=== PATIENT | male | born 2000 | race Caucasian/White ===

== ENCOUNTER 2018-04-29 20:16 | Emergency (ER) | payer OTHER ==
[2018-04-29] MEDS ORDERED: LIDOCAINE 2%-EPI 1:100000 20 ML MDV SUBQ STA (20:32)
--- NOTE | 2018-04-29 20:34 | ED Physician Documentation ---
PD HPI DYSPNEA - Stated complaint Stated Complaint: COUGH/CHEST PX - Chief complaint Chief Complaint: Resp - History obtained from History obtained from: Patient, Family (mom) - History of Present Illness Timing - onset: Last night (He has had what he describes as a cold for about a week with runny nose and cough. The runny nose went away but the cough has been getting worse. Suddenly last night he fell up severe right-sided chest pain while coughing and has trouble deep breathing now especially with inhalations. He is short of breath. He denies fevers at this juncture. He does not smoke.) Review of Systems Ten Systems: 10 systems reviewed and negative Constitutional: denies: Fever, Chills Nose: reports: Rhinorrhea / runny nose (gone) Cardiac: reports: Chest pain / pressure Respiratory: reports: Dyspnea, Cough PD PAST MEDICAL HISTORY - Past Medical History Past Medical History: No - Present Medications Home Medications: Ambulatory Orders Medication Instructions Recorded Confirmed No Known Home Medications 04/29/18 04/29/18 - Allergies Allergies/Adverse Reactions: Allergies Allergy/AdvReac Type Severity Reaction Status Date / Time No Known Drug Allergies Allergy Verified 04/29/18 20:59 - Living Situation Living Situation: reports: With family - Social History Does the pt smoke?: No Does the pt drink ETOH?: No - Family History Family history: reports: Non contributory PD ED PE NORMAL - Vitals Vital signs reviewed: Yes - General General: Alert and oriented X 3, Other (This is a tall thin young man in slight respiratory distress speaking in short but full sentences, but not full paragraphs.) - HEENT HEENT: PERRL, EOMI - Neck Neck: Supple, no meningeal sign, No bony TTP - Cardiac Cardiac: No murmur, Other (Quite tachycardic) - Respiratory Respiratory: Other (Slight tachypnea, decreased but not absent breath sounds on the right.) - Abdomen Abdomen: Soft, Non tender - Back Back: No CVA TTP, No spinal TTP - Derm Derm: Normal color, Warm and dry - Extremities Extremities: No edema, No calf tenderness / cord - Neuro Neuro: Alert and oriented X 3, Normal speech - Psych Psych: Normal mood, Normal affect Results - Vitals Vitals: Vital Signs - 24 hr 04/29/18 04/29/18 04/29/18 20:19 20:31 20:51 Temperature 37.2 C Heart Rate 57 L 156 H 132 H Respiratory 26 H 39 H 39 H Rate Blood Pressure 170/141 H 128/77 128/77 O2 Saturation 80 L 95 96 04/29/18 04/29/18 04/29/18 21:32 22:00 22:16 Temperature 38.1 C H 37.7 C H Heart Rate 113 H 126 H 130 H Respiratory 33 H 33 H 26 H Rate Blood Pressure 113/90 H 129/74 127/76 O2 Saturation 96 99 98 04/29/18 22:30 Temperature Heart Rate 128 H Respiratory 30 H Rate Blood Pressure 118/74 O2 Saturation 99 Oxygen O2 Source Nasal cannula Oxygen Flow Rate 2 - EKG (time done) 2027 Rate: Rate (enter#) (143) Rhythm: Sinus tachycardia, LAE [place]: Normal Intervals: Normal CA QRS: Normal Ischemia: Non specific changes Computer interpretation: Agree with computer - Labs Labs: Laboratory Tests 04/29/18 04/29/18 04/29/18 20:30 20:30 20:30 WBC 32.0 H RBC 5.06 Hgb 15.2 Hct 43.7 MCV 86.4 MCH 30.1 MCHC 34.9 RDW 13.1 Plt Count 211 MPV 8.4 Neut # (Auto) Not Reportable Lymph # (Auto) Not Reportable [place] # (Auto) Not Reportable Eos # (Auto) Not Reportable Baso # (Auto) Not Reportable Absolute Nucleated RBC Not Reportable Total Counted 100 Band Neuts % (Manual) 23 H Abnorm Lymph % (Manual) 0 Metamyelocytes % 2 H Nucleated RBC % Not Reportable Neutrophils # (Manual) 27.5 H Lymphocytes # (Manual) 1.6 Monocytes # (Manual) 2.2 H Eosinophils # (Manual) 0.0 Basophils # (Manual) 0.0 Differential Comment MANUAL DIFFERENTIAL Manual Slide Review Indicated Platelet Estimate NORMAL (130-450,000) Platelet Morphology NORMAL APPEARANCE RBC Morph Micro Appear NORMAL APPEARANCE PT 20.7 H INR 1.8 H Sodium 132 L Potassium 3.7 Chloride 94 L Carbon Dioxide 25 Anion Gap 13.0 BUN 12 Creatinine 0.8 Estimated GFR (MDRD) 125 Glucose 130 H Lactic Acid Calcium 8.7 Total Bilirubin 2.3 H AST 42 ALT 46 Alkaline Phosphatase 115 Total Protein 8.0 Albumin 3.5 Globulin 4.5 H Albumin/Globulin Ratio 0.8 L Lipase 54 H Influenza A (Rapid) Influenza B (Rapid) 04/29/18 04/29/18 20:40 21:10 WBC RBC Hgb Hct MCV MCH MCHC RDW Plt Count MPV Neut # (Auto) Lymph # (Auto) [place] # (Auto) Eos # (Auto) Baso # (Auto) Absolute Nucleated RBC Total Counted Band Neuts % (Manual) Abnorm Lymph % (Manual) Metamyelocytes % Nucleated RBC % Neutrophils # (Manual) Lymphocytes # (Manual) Monocytes # (Manual) Eosinophils # (Manual) Basophils # (Manual) Differential Comment Manual Slide Review Platelet Estimate Platelet Morphology RBC Morph Micro Appear PT INR Sodium Potassium Chloride Carbon Dioxide Anion Gap BUN Creatinine Estimated GFR (MDRD) Glucose Lactic Acid 2.6 H Calcium Total Bilirubin AST ALT Alkaline Phosphatase Total Protein Albumin Globulin Albumin/Globulin Ratio Lipase Influenza A (Rapid) Negative Influenza B (Rapid) Negative - Rads (name of study) 1v chest Radiology: EMP read contemporaneously (Mass versus loculated fluid in the right mid lung with interstitial right lung base infiltrate.) CT Chest Radiology: EMP read contemporaneously (Rounded appearance to masslike consolidation in the likely pneumonia. Follow-up chest CT with contrast is recommended in 3 months to assess for underlying lesion. Enlarged 1.5 cm right paratracheal lymph node may be reactive. 3 mm right renal calculus. Loculated pleural effusion.) PD MEDICAL DECISION MAKING - ED course ED course: This is a previously healthy tall thin 17-year-old who has had what sounds like a URI for about a week but much more ill since last night with a lot of right- sided chest pain and difficulty breathing. He does appear significantly ill with tachycardia, hypoxemia. He was attended to immediately. Differential diagnosis also included a right-sided pneumothorax but that is not present on x- ray. He does appear septic with a right mid lung and lower lung infiltrates, and the midlung infiltrate is concerning for mass or abscess. His labs do show a septic picture with a white count of 32,000 and left shift with bandemia, INR of 1.8, Lactate of 2.6 and a slightly elevated bilirubin. He was administered broad-spectrum antibiotics, Rocephin, azithromycin, and also vancomycin after reviewing the chest x-ray. Also 3 L of crystalloid, 2 L of lactated Ringer's and 1 L of saline. A flu swab was sent. Given the somewhat nebulous picture of the x-ray he will be sent over for CT of his chest to better evaluate the right mid lung. I believe he deserves transfer to a tertiary hospital for higher level of care for several reasons 1 is that the expected length of stay is probably greater than 96 hours, to he deserves consultation from potentially cardiothoracic surgeon for empyema and pulmonology for complicated pneumonia. [facility] was contacted and they are trying to facilitate a transfer for us. I discussed with him any risk factors for tuberculosis, he is never been incarcerated or used IV drugs or had significant foreign travel. [facility] arranged for transfer to [facility] under the care of Dr. Joaquin the resident assistant cna there. Airlift was mobilized given his hemodynamic instability, sepsis, and potentially long transport time by ground. - Critical Care Time(min): 50 Time Includes: Direct patient care, Review records, Reassess patient, Document care, Coordinate care, Medical consult, Family consult for tx dec Data interpretation: Labs Procedures included in critical care time: Peripheral IV Procedures excluded from critical care time: EKG Departure - Departure Disposition: 02 Transfer Acute Care Hosp Clinical Impression: Empyema Pneumonia Qualifiers: Pneumonia type: due to unspecified organism Laterality: right Lung location: lower lobe of lung Qualified Code(s): J18.1 - Lobar pneumonia, unspecified organism Sepsis Qualifiers: Sepsis type: sepsis due to unspecified organism Qualified Code(s): A41.9 - Sepsis, unspecified organism Condition: Critical
[2018-04-29] MEDS ORDERED: LACTATED RINGERS 2,000 ML IV STA (20:37)
[2018-04-29] MEDS ORDERED: AZITHROMYCIN INJ 500 MG in SODIUM CHLORIDE 0.9% 250 ML IV STA (20:37)
[2018-04-29] MEDS ORDERED: cefTRIAXone 2 GM in SODIUM CHLORIDE 0.9% MINIBAG 100 ML IV STA (20:37)
[2018-04-29] MEDS ORDERED: SODIUM CHLORIDE 0.9% 1,000 ML IV ONE (20:38)
[2018-04-29 20:41] LABS: BASOPHILS % (AUTO) 0.2 %; EOSINOPHILS % (AUTO) 0.2 %; HGB - HEMOGLOBIN 15.2 g/dL (14.0-18.0); LYMPHOCYTES % (AUTO) 1.5 %; MEAN CORPUSCULAR HEMOGLOBIN 30.1 pg (27.0-31.0); MEAN CORPUSCULAR HGB CONC 34.9 g/dL (32.0-36.0); MEAN CORPUSCULAR VOLUME 86.4 fL (80.0-94.0); MEAN PLATELET VOLUME 8.4 fL (7.4-11.4); MONOCYTES % (AUTO) 4.5 %; NEUTROPHILS % (AUTO) 93.6 %; PLT - PLATELET COUNT 211 10^3/uL (130-450); RED BLOOD COUNT 5.06 10^6/uL (4.70-6.10); RED CELL DISTRIBUTION WIDTH 13.1 % (12.0-15.0)
[2018-04-29 20:48] LABS: ABNORMAL LYMPHS % (MANUAL) 0 %
[2018-04-29 20:56] LABS: ALBUMIN 3.5 g/dL (3.2-5.5); ALBUMIN/GLOBULIN RATIO 0.8 (1.0-2.2); BILIRUBIN,TOTAL 2.3 mg/dL (0.2-1.0); CALCIUM 8.7 mg/dL (8.5-10.3); CREATININE 0.8 mg/dL (0.6-1.2)
[2018-04-29 20:57] LABS: INR 1.8 (0.8-1.2); PT - PROTHROMBIN TIME 20.7 secs (9.9-12.6)
--- NOTE | 2018-04-29 21:02 | XRAY Report ---
Reason: SOB Procedure Date: 04/29/2018 Accession Number: [id number] / [id number] Procedure: XR - Chest 1 View X-Ray CPT Code: 08870 FULL RESULT: EXAM: CHEST RADIOGRAPHY EXAM DATE: 04/29/2018 08:42 PM. CLINICAL HISTORY: Shortness of breath. COMPARISON: None. TECHNIQUE: 1 view. FINDINGS: Lungs/Pleura: Clear left lung. Ill-defined hazy opacity in the right midlung, loculated fluid versus mass, with interstitial infiltrate in the base. No pneumothorax. Mediastinum: Within exam limitations, the cardiomediastinal contour is normal. Other: No bony abnormality noted. IMPRESSION: Mass versus loculated fluid, right midlung, with interstitial right base infiltrate. RADIA
[2018-04-29 21:12] LABS: BAND NEUTROPHILS % (MANUAL) 23 %; LYMPHOCYTES # (MANUAL) 1.6 10^3/uL (1.5-3.5); LYMPHOCYTES % (MANUAL) 5 %; METAMYELOCYTES % (MANUAL) 2 %; MONOCYTES # (MANUAL) 2.2 10^3/uL (0.0-1.0); NEUTROPHILS # (MANUAL) 27.5 10^3/uL (1.5-6.6); NEUTROPHILS % (MANUAL) 63 %
[2018-04-29 21:13] LABS: DIFFERENTIAL COMMENT MANUAL DIFFERENTIAL; PLATELET ESTIMATE, MANUAL NORMAL (130-450,000) (NORMAL); PLATELET MORPHOLOGY NORMAL APPEARANCE (NORMAL); RBC MORPHOLOGY (MULTIPLE) NORMAL APPEARANCE (NORMAL)
[2018-04-29] MEDS ORDERED: VANCOMYCIN INJ 2 GM in SODIUM CHLORIDE 0.9% 500 ML IV STA (21:16)
[2018-04-29] MEDS ORDERED: MORPHINE 2 MG/ML CARPUJECT IVP STA ×2 (21:22→22:08)
[2018-04-29] MEDS ORDERED: ONDANSETRON 4 MG/2 ML VIAL IVP STA ×2 (21:22→23:25)
[2018-04-29] MEDS ORDERED: IOVERSOL 320 100 ML VIAL IVP ONE ×2 (21:27→21:55)
--- NOTE | 2018-04-29 22:24 | CT Report ---
Reason: IV only, complicated PNA, ?abscess Procedure Date: 04/29/2018 Accession Number: [id number] / [id number] Procedure: CT - CHEST W CPT Code: FULL RESULT: EXAM: CT CHEST EXAM DATE: 04/29/2018 09:39 PM. CLINICAL HISTORY: IV only, complicated PNA, ?abscess. COMPARISONS: None. TECHNIQUE: Routine helical CT imaging was performed through the chest. IV contrast: 80 cc Optiray 320. Reconstructions: Coronal and sagittal. In accordance with CT protocol optimization, one or more of the following dose reduction techniques were utilized for this exam: automated exposure control, adjustment of mA and/or KV based on patient size, or use of iterative reconstructive technique. FINDINGS: Lungs/Pleura: Masslike consolidation of the right lower lobe measuring 6.3 cm centrally. Heterogeneous hypoenhancement with no evidence for abscess. Patchy areas of opacification and groundglass in the aerated right lower lobe. Loculated moderate right pleural effusion is present. No endobronchial or endotracheal lesion. Mediastinum: Imaged portions of the thyroid are grossly unremarkable. Thoracic aorta and main pulmonary artery are normal caliber.No central PE. Heart size is within normal limits. No pericardial effusion. Lymph Nodes: 1.5 cm lower right paratracheal lymph node (05/29). Bones: No suspicious osseous lesions. Visualized chest wall is grossly unremarkable. Partially Imaged Upper Abdomen: 3 mm right renal calculus is present. IMPRESSION: Somewhat rounded appearance to masslike consolidation in the right lower lobe, most likely pneumonia. Follow-up chest CT with contrast is recommended in 3 months to assess for underlying lesion. Enlarged 1.5 cm right paratracheal lymph node may be reactive. 3 mm right renal calculus. RADIA
[2018-04-30 00:08] VITALS: BP 110/64
== END 2018-04-30 00:35 | disposition short-term general hospital (02) ==
LOC: ED 20:16
DX: A41.9 Sepsis, unspecified organism (principal); J86.9 Pyothorax without fistula; J18.1 Lobar pneumonia, unspecified organism
CPT/HCPCS: 36415; 71045; 71260; 80053; 83605; 83690; 85025; 85610; 87040; 87275; 87276; 93005; 96365; 96366; 96367; 96375; 96376; 99291; J3370; J7120; Q9967; 99285

== ENCOUNTER 2018-07-15 13:51 | Outpatient (CLI) | payer OTHER ==
--- NOTE | 2018-07-15 15:56 | XRAY Report ---
Reason: EMPYEMA OF PLEURA,PNEUMONIA Procedure Date: 07/15/2018 Accession Number: [id number] / [id number] Procedure: XR - Chest 2 View X-Ray CPT Code: 17161 FULL RESULT: EXAM: CHEST RADIOGRAPHY EXAM DATE: 07/15/2018 02:09 PM. CLINICAL HISTORY: Empyema of pleura, pneumonia. COMPARISON: XR CHEST 1 VIEW AP/PA 05/10/2018 7:50 AM. TECHNIQUE: 2 views. FINDINGS: Lungs/Pleura: There is some proximal airway thickening and lung volumes are high. No lobar consolidation is detected. There is blunting of the right costophrenic angle, minimally increased compared to prior and suggestive of a small pleural effusion. No pneumothorax is detected. Mediastinum: Heart and mediastinal contours are unremarkable. Other: The outline of the anterior right third rib is abnormal. IMPRESSION: High lung volumes and mild central airway thickening suggest the possibility of reactive airways disease. Abnormal appearance of the anterior right third rib, fracture versus confluence of shadows in the region of the horizontal fissure, area of prior loculated pleural effusion. Likely small right pleural effusion. RADIA The call report notification system was initiated by Dr. Robbie Varela at 03:43 PM on 07/15/2018. CRITICAL RESULT: The findings were discussed with Dr. Donahue on 07/15/2018 at 3:55 PM. . .
== END 2018-07-15 13:52 | disposition home or self-care (01) ==
LOC: DI 13:51
PROVIDERS: ATTEND Family Medicine
DX: J86.9 Pyothorax without fistula (principal); J18.9 Pneumonia, unspecified organism
CPT/HCPCS: 71046

== ENCOUNTER 2018-08-20 11:59 | Outpatient (CLI) | payer OTHER ==
--- NOTE | 2018-08-21 16:03 | XRAY Report ---
Reason: PNEUMONIA Procedure Date: 08/20/2018 Accession Number: [id number] / [id number] Procedure: XR - Chest 2 View X-Ray CPT Code: 49590 FULL RESULT: EXAM: CHEST RADIOGRAPHY EXAM DATE: 08/20/2018 12:17 PM. CLINICAL HISTORY: PNEUMONIA. COMPARISON: CHEST 2 VIEW 07/15/2018 2:04 PM THORAX 01 XCARE CHEST IV (ADULT) 05/06/2018 2:52 PM. TECHNIQUE: 2 views. FINDINGS: Lungs/Pleura: No evidence of lobar consolidation. Stable right costophrenic sulcus blunting which could represent small residual effusion. There is no evidence of pneumothorax. Mediastinum: Heart and mediastinal contours are unremarkable. Other: No acute bony abnormalities are seen. IMPRESSION: No acute intrathoracic plain film abnormality. RADIA
== END 2018-08-20 12:00 | disposition home or self-care (01) ==
LOC: DI 11:59
PROVIDERS: ATTEND Family Medicine
DX: J18.9 Pneumonia, unspecified organism (principal)
CPT/HCPCS: 71046

== ENCOUNTER 2021-02-20 16:23 | Outpatient (CLI) | payer OTHER | END 2021-02-20 16:24 | disposition EMS.NT | LOC: EMS 16:23 | DX: Z04.1 Encounter for examination and observation following transport accident (principal) ==

== ENCOUNTER 2021-02-20 17:18 | Emergency (ER) | payer OTHER ==
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
[2021-02-20 18:40] VITALS: BP 116/72
== END 2021-02-20 18:40 | disposition home or self-care (01) ==
LOC: ED 17:18
DX: S16.1XXA Strain of muscle, fascia and tendon at neck level, initial encounter (principal); R04.0 Epistaxis; V43.52XA Car driver injured in collision with other type car in traffic accident, initial encounter; Y92.410 Unspecified street and highway as the place of occurrence of the external cause
CPT/HCPCS: 99281; 99282